=== PATIENT | female | born 2005 | race Asian ===

== ENCOUNTER 2024-03-06 | Emergency (ER) | payer BC, SELFPAY ==
--- NOTE | ~2024-03-06 | XR_ITS ---
EXAMINATION: XR ANKLE, RIGHT CLINICAL INFORMATION: Right ankle injury COMPARISON: None available. TECHNIQUE: AP, lateral, and mortise views of the right ankle. FINDINGS: Osseous alignment is anatomic. No acute fracture is seen. No significant focal soft tissue abnormality identified. XR/XR ankle RT min 3V IMPRESSION: No acute findings.
[2024-03-06 00:07] VITALS: BP 100/80; PULSE 90; O2SAT 99
[2024-03-06 00:35] VITALS: BP 104/61; PULSE 75; RESP 16; TEMP 36.9; O2SAT 98; BMI 23.5
[2024-03-06 03:50] VITALS: BP 105/71; PULSE 70; RESP 16; TEMP 36.7; O2SAT 100
[2024-03-06 06:13] VITALS: BP 101/66; PULSE 66; RESP 16; TEMP 36.6; O2SAT 100
--- NOTE | 2024-03-06 06:36 | ED_ITS ---
HPI - Extremity Injury (Lower) General Chief Complaint: Extremity Injury, Lower Stated Complaint: right ankle pain Time Seen by Provider: 03/06/24 06:27 Source: patient and EMS Mode of arrival: EMS Limitations: no limitations History of Present Illness HPI Narrative: [age] year old otherwise healthy female presents to the ER for evaluation of right ankle pain. She states that last night she twisted her ankle while walking on campus at her college. She everted the ankle and has had inner ankle pain since. She can ambulate but with pain. She reports swelling to the inside and outside of her ankle. No numbness or tingling. No other injuries. complaint: ankle injury Onset (ago): hour(s) Type of Injury: eversion Place: school Severity: moderate Severity scale (1-10): 6 Relieving factors: immobilization and rest Exacerbating factors: weight bearing, movement and palpation Context: walking Associated symptoms: able to partially bear weight Other symptoms: none Treatments prior to arrival: cold therapy Related Data Allergies Allergy/AdvReac Type Severity Reaction Status Date / Time No Known Allergies Allergy Verified 03/06/24 00:38 Review of Systems Review of Systems: Yes all other systems are reviewed and are negative [facility] Social History Social History Smoked in Last 30 Days: No Use of substances other than those prescribed or required for medical reasons: No Advance Directives: No Advance Directives Information Provided: Yes Patient : No Physical Exam Vital Signs: Vital Signs: Last Vital Signs Temp 97.8 F 03/06/24 06:13 Pulse 66 03/06/24 06:13 Resp 16 03/06/24 06:13 BP 101/66 03/06/24 06:13 Pulse Ox 100 03/06/24 06:13 O2 Del Method Room Air 03/06/24 06:13 BMI result Body Mass Index 23.5 Appearance: Alert. Oriented X3. No acute distress. HEENT: normal inspection CVS: Normal heart rate and rhythm. Pulses normal. Respiratory: No respiratory distress. Skin: Skin warm and dry. Normal skin color. Normal skin turgor. No rashes. Extremities: mild generalized swelling to the medial and lateral malleoli, no point tenderness. limited ROM due to pain. foot is warm and well perfused, no metatarsal tenderness. Neuro: Oriented X 3. No motor deficit. No sensory deficit. Medical Decision Making Medical Decision Making MDM Narrative: 18-year-old female presents to the ER for evaluation of right ankle pain after she twisted it while walking on her college campus last night. Pain with movement, palpation and ambulation. X-ray is negative for acute fracture. Will treat for ankle sprain with ice, compression, rest, elevation, crutches p.r.n.. NSAIDs p.r.n.. Stable for discharge home with supportive care. Differential Diagnosis Differential Diagnoses: The differential diagnosis associated with the presentation includes Ankle sprain, ankle sprain, ankle fracture, ankle contusion Independent Interpretation I performed an independent interpretation of an: Plain X-Ray Interpretation: No acute fracture appreciated, agree with radiology read Radiology Impression Discussion of test interpretation with radiology: I have reviewed the radiologist's reading. Radiologist Impression: EXAMINATION: XR ANKLE, RIGHT CLINICAL INFORMATION: Right ankle injury COMPARISON: None available. TECHNIQUE: AP, lateral, and mortise views of the right ankle. FINDINGS: Osseous alignment is anatomic. No acute fracture is seen. No significant focal soft tissue abnormality identified. XR/XR ankle RT min 3V IMPRESSION: No acute findings. Independent Historian Clinical information obtained from an independent historian. History obtained from or confirmed by: EMS Prescription Management I considered prescription management with: Pain Medication Critical Care Time Critical Care Time Critical Care Time: No Discharge Plan Discharge Clinical Impression: Ankle sprain Patient Disposition: Home, Self-Care Instructions: Ankle Sprain (DC) Additional Instructions: Your x-ray today was normal. Rest your ankle and elevate your foot when possible. Recommend STELLA wrap for support and compression. Use ice several times per day for the next 48 hours. You may bear weight as tolerated. If pain is too severe, use crutches until better. Take Motrin and/or Tylenol as needed for pain. Follow up with your doctor as needed. Stand Alone Forms: Work/School Release Print Language: Icelandic
[2024-03-06 07:07] VITALS: BP 123/81; PULSE 72; RESP 16; TEMP 36.6; O2SAT 98
== END 2024-03-06 07:14 | disposition home or self-care (01) ==
PROVIDERS: Emergency Provider Emergency Medicine
DX: S93.401A Sprain of unspecified ligament of right ankle, initial encounter (principal); X50.1XXA Overexertion from prolonged static or awkward postures, initial encounter; Y93.01 Activity, walking, marching and hiking; Y92.214 College as the place of occurrence of the external cause; Y99.8 Other external cause status
CPT/HCPCS: 73610; 99283; 99284